=== PATIENT | female | born 1955 | race Two or more races ===

== ENCOUNTER 2025-06-07 00:15 | Emergency (ER) | payer MEDICARE, MEDICAID, SELFPAY ==
[2025-06-07] VITALS (17 sets, daily range): BP systolic 118–150; BP diastolic 76–113; PULSE 61–119; RESP 17–29; TEMP 36.5; O2SAT 93–98; BMI 43.7
--- NOTE | 2025-06-07 00:30 | PD.EDSOB ---
ED SOB =RME/HPI General Chief Complaint: Shortness of Breath/Dyspnea Stated Complaint: DIFF BREATHING Time Seen by Provider: 06/07/25 00:35 Arrival date/time: 06/07/25 00:15 RME / HPI RME / HPI Narrative: See MDM for Dr. Hernadez's HPI documentation. Related Data Home Medications ?Medication ?Instructions ?Recorded ?Confirmed apixaban 2.5 mg tablet (Eliquis) 5 mg PO BID 03/28/21 07/05/22 Held on 07/05/22. Instructions: Resume on 07/06/22. carvedilol 3.125 mg tablet 12.5 mg PO BID 03/28/21 07/05/22 ergocalciferol (vitamin D2) 1,250 1,250 mcg PO DAILY 03/28/21 07/05/22 mcg (50,000 unit) capsule furosemide 40 mg tablet 40 mg PO DAILY 03/28/21 07/05/22 pravastatin 40 mg tablet 40 mg PO DAILY 03/28/21 07/05/22 Previous Rx's ?Medication ?Instructions ?Recorded apixaban 5 mg tablet (Eliquis) 5 mg PO BID #60 tabs 06/07/25 carvedilol 12.5 mg tablet 12.5 mg PO BID #60 tabs 06/07/25 furosemide 40 mg tablet 40 mg PO QAM #30 tabs 06/07/25 Allergies Allergy/AdvReac Type Severity Reaction Status Date / Time enoxaparin (From Lovenox) Allergy Mild HIVES Verified 06/07/25 04:32 Review of Systems Review of Systems Systems Reviewed: All systems reviewed, normal except as documented Past Medical History Past Medical History NEUROLOGIC: Negative Neurological Disorders, Cerebrovascular Accident, Transient Ischemic Attacks (TIA), Dementia, Alzheimer's Disease, Parkinson's Disease, Brain Tumor, Meningitis, Seizures, Epilepsy, Multiple Sclerosis, Cerebral Palsy, Amyotrophic Lateral Sclerosis (ALS/Mi Gehrig's), Guillain-Riverton Syndrome, Spina Bifida, Paralysis, Peripheral Neuropathy, Bain's Palsy, Subdural Hematoma, Migraine, Head Trauma, Spinal Cord Injury or Traumatic Brain Injury CARDIAC: Positive Cardiac Disorders, Atrial Fibrillation (unknown. unclear.), Angina, Congestive Heart Failure and Hypertension; Negative Myocardial Infarction, Cardiac Arrhythmia, Heart Murmur, Coronary Artery Disease, Atherosclerotic Heart Disease, Peripheral Vascular Disease, Hypercholesterolemia, Aneurysm, Congenital Heart Disease, Valvular Heart Disease, Rheumatic Fever, Cardiomyopathy, Edema, Pericarditis, Cellulitis, Deep Vein Thrombosis, Hypotension or Varicose Veins RESPIRATORY: Negative Chronic Obstructive Pulmonary Disease (COPD), Asthma, Bronchitis, Emphysema, Pneumonia, Pulmonary Fibrosis, Cystic Fibrosis, Tuberculosis, Pulmonary Embolism, Pulmonary Edema or Sleep Apnea GASTROINTESTINAL: Negative Gastrointestinal Disorders, Hepatitis, Cirrhosis, Pancreatitis, Celiac Disease, Gall Bladder Disease, Gastrointestinal Bleed, Esophageal Varices, Maria's Esophagus, Colitis, Ulcerative Colitis, Diverticulitis, Diverticulosis, Ulcer, Colorectal Cancer, Irritable Bowel, Crohn's Disease, Obstructive Bowel, Hiatal Hernia, Hemorrhoids, Gastroesophageal Reflux Disease or Obesity GENITOURINARY: Negative Genitourinary Disorders, Renal Disease, Kidney Stones, Polycystic Kidney Disease, Neurogenic Bladder, Inguinal Hernia or Dialysis REPRODUCTIVE: Positive Previous Pregnancies (); Negative Breast Cancer, Endometriosis, Genital Herpes, Gonorrhea, Pelvic Inflammatory Disease, Syphilis or Uterine Prolapse MUSCULOSKELETAL: Negative Musculoskeletal Disorders, Muscular Dystrophy, Myasthenia Gravis, Marfan's Syndrome, Bone Cancer, Arthritis, Rheumatoid Arthritis, Osteoporosis, Degenerative Disk Disease, Gout, Scoliosis, Carpal Tunnel Syndrome, Fibromyalgia, Fractures, Degenerative Joint Disease, Osteomyelitis or Poliovirus ENT: Negative Cataracts, Glaucoma, Blind, Retinal Detachment, Macular Degeneration, Ear Infection, Deafness, Head Trauma or Eye Prosthesis ENDOCRINE: Negative Endocrine Disorders, Diabetes Mellitus Type 1, Diabetes Mellitus Type 2, Hypoglycemia, Jennie's Syndrome, Partridge's Disease, Hyperthyroidism, Hypothyroidism, Parathyroid Disease, Pituitary Disease, Systemic Lupus Erythematosus, Syndrome of Inappropriate Antidiuretic Hormone (SIADH), Adrenal Disease or Graves' Disease HEMATOLOGIC: Negative Blood Disorders, Anemia, Leukemia, Hemophilia, Thalassemia, Sickle Cell Disease or Clotting Problems PSYCHO/SOCIAL: Positive Depression (undiagnosed.); Negative Psychiatric Problems, Schizophrenia, Recreational Drug Use, Bipolar Disorder, Anxiety, Behavior Problems, Self-Mutilation, Attention Deficit Disorder, Attention Deficit Hyperactivity Disorder, Depression, Post Traumatic Stress Disorder or Eating Disorder OTHER HISTORY: Negative Hospitalization, Autoimmune Disease, Down Syndrome, Autism, Developmental Delay, Shingles, Falls, Blood Transfusions, Blood Transfusion Reaction, Anesthesia Reactions, Organ Transplant, Chemotherapy, Radiation Therapy, Hyperbaric Therapy, MRSA, VRSA, Vancomycin-Resistant Enterococci, Human Immunodeficiency Virus (HIV), Chicken Pox, Measles, Mumps, Rubella (Spanish Measles), Pertussis, Clostridium Difficile, Cancer, Breast Cancer, Cervical Cancer, Colorectal Cancer, Lung Cancer or Ovarian Cancer Family History FAMILY HISTORY: Positive Family Cardiac Disorders (mother and father from [place].); Negative Family Psychiatric Problems, Family Respiratory Disorders, Family Gastrointestinal Problems, Family Cancer, Family Surgery or Family Anesthesia Reaction Surgical History SURGICAL: Positive Tubal Ligation; Negative Cardiac Surgery, Open Heart Surgery, Coronary Artery Bypass Graft, Valve Replacement, Vascular Surgery, Coronary Stent, Cardiac Catheterization, Pacemaker, Angiogram, Auto Implanted Cardiovert Defib, Carotid Endarterectomy, Endocrine Surgery, Thyroidectomy, Ear Surgery, Tympanostomy Tube, Eye Surgery, Nose Surgery, Oral Surgery, Tonsillectomy, Adenoidectomy, Cochlear Implant, Corneal Transplant, Throat Surgery, Abdominal Surgery, Tracheostomy, Gastric Bypass Surgery, Gastrostomy, Bowel Surgery, Nephrectomy, Transurethral Resection, Joint Replacement, Amputation, Open Reduction Internal Fixation, Arthroscopy, Neurologic Surgery, Brain Shunt, Mastectomy, Lumpectomy, Hysterectomy, Section or Organ Transplant Social History SMOKING STATUS: Never smoker SUBSTANCE USE: does not use ED Exam Narrative Physical exam: See [facility] for Dr. Hernadez's physical exam documentation. Course Course Course Narrative: CXR is ordered for determining the etiology of shortness of breath. Quality Measures none Orders Category Date Time Status Bedside COVID-19 Antigen Test NOW Care 06/07/25 00:37 Active Bedside Influenza A&B Antigen Test NOW Care 06/07/25 00:[address] Screening NOW Care 06/07/25 00:38 Active EKG (ED ONLY) *Do not use* NOW Care 06/07/25 00:38 Completed Saline [Insert IV] NOW Care 06/07/25 00:37 Active Straight [In and Out Catheter] X1 Care 06/07/25 00:[address] angio chest Stat Exams 06/07/25 00:38 Taken EKG (ED Only) Stat Exams 06/07/25 00:38 Draft XR chest 1V portable Stat Exams 06/07/25 00:38 Taken BNP [B-Type Natriuretic Peptide] Stat Lab 06/07/25 01:12 Completed Bilirubin,Direct Stat Lab 06/07/25 01:12 Completed Blood Culture (Lab) Stat Lab 06/07/25 01:12 Received CBC Stat Lab 06/07/25 01:12 Completed CMP [Comprehensive Metabolic Panel] Stat Lab 06/07/25 01:12 Completed CRP [C-Reactive Protein] Stat Lab 06/07/25 01:12 Completed D-Dimer Stat Lab 06/07/25 01:12 Completed ESR [Sed Rate (ESR)] Stat Lab 06/07/25 01:12 Completed Lactate (Lactic Acid) Stat Lab 06/07/25 01:12 Completed Magnesium Stat Lab 06/07/25 01:12 Completed PT [Prothrombin Time with INR] Stat Lab 06/07/25 01:12 Completed PTT [Partial Thromboplastin Time] Stat Lab 06/07/25 01:12 Completed Procalcitonin Stat Lab 06/07/25 01:12 Completed TSH [Thyroid Stimulating Hormone] Stat Lab 06/07/25 01:12 Completed Troponin I Stat Lab 06/07/25 01:12 Completed UA, C/S IF [Urinalysis, C/S if Indicated] Stat Lab 06/07/25 01:35 Completed VBG [Venous Blood Gas] Stat Lab 06/07/25 01:12 Completed Albuterol/Ipratr Rt Giovana [Duoneb Rt Giovana] Med 06/07/25 00:38 Discontinued 3 ml INH X1 ONE DILTIAZEM in D5W 125 MG Med 06/07/25 00:54 Active 125 mg in 125 ml IV 5 mg/hr Diltiazem Inj [Cardizem Inj] Med 06/07/25 00:53 Discontinued 15 mg IV X1 ONE Enoxaparin [Lovenox] Med 06/07/25 03:51 Discontinued 80 mg SC X1 ONE Furosemide Inj [Lasix Inj] Med 06/07/25 02:17 Discontinued 20 mg IVP X1 ONE MethylPREDNISolone.* [SoluMEDROL Inj] Med 06/07/25 00:38 Discontinued 125 mg IVP X1 ONE Morphine* Inj Med 06/07/25 02:17 Discontinued 1 mg IV X1 ONE Triamcinolone Acet Oint 0.5% [Kenalog Oint 0.5%] Med 06/07/25 04:30 Discontinued See Dose Instructions TOP X1 ONE predniSONE Med 06/07/25 04:31 Discontinued 60 mg PO X1 ONE Vital Signs Vital signs: Vital Signs Temperature 97.7 F 06/07/25 00:34 Pulse Rate 116 H 06/07/25 00:34 Respiratory Rate 17 06/07/25 00:34 Blood Pressure 150/88 H 06/07/25 00:34 Pulse Oximetry (%) 95 06/07/25 00:34 Oxygen Delivery Method Room Air 06/07/25 00:34 Shortness of Breath / Dyspnea MDM Narrative MDM Narrative:: This section includes all my notes and documentations, including HPI, PE, and ED course. Delroy Hernadez MD HPI: 69yo female with a history of HTN and atrial fibrillation here with shortness of breath for the last couple days. No fever, chills, cough, or leg swelling. No other complaints reported. ROS: All negative except as documented in HPI. Physical Exam: General: Alert and oriented. In respiratory distress. Eyes: Conjunctivae and lids clear. ENT: No nasal congestion. Neck: Supple. Heart: Irregularly irregular (111 bpm). Lungs: In moderate respiratory distress. Severely decreased air movement with no severe rhonchi or wheezing or rales. Abdomen: Soft and nontender. Normal bowel sounds. No distension. No rebound or guarding. Back: No CVA tenderness. Legs: No edema. Skin: Warm and dry. Neuro: Alert and oriented X 3. I reviewed all diagnostic test results. My interpretation of the EKG is atrial fibrillation with RVR. My interpretation of the chest x-ray is increased vascular congestion. My review of the CT angio chest report is pleural effusion. Blood tests remarkable for BNP 391. COVID/Influenza negative. At this point, diagnoses include: Atrial fibrillation Pleural effusion Treatment here included: Solumedrol 125 mg IV and DuoNeb Lasix 20 mg IV Cardizem bolus and drip Lovenox SC Significant improvement noted. Recommended more outpatient care. Based on my best medical judgment, made decision no further evaluation or treatment indicated at this time. Patient understands and agrees to the discharge instructions customized and printed, see below. Discharge Instructions from Dr. Hernadez printed for you: 1. After evaluation, you were treated for atrial fibrillation. See attached handout. 2. Take carvedilol and Lasix (furosemide) and Eliquis as prescribed. We need to take these medications to prevent strokes and heart attacks. This is extremely important. 3. Lasix (furosemide) can lower potassium to very dangerous levels. So eat a banana daily. 4. When sitting or sleeping or resting, elevate the head of bed and elevate your feet/ankles above your waist level. This is extremely important to prevent heart failure. 5. See a private doctor on 06/08/2025 for recheck and further care. Ask to review all test results and official radiology reports, to make sure you receive all necessary follow-ups and monitoring. To make sure there is no serious underlying heart condition, ask to help you get more tests for your heart that cannot be done here in the ER. Such as Holter Monitor (cardiac monitoring at home from a day to even a month), heart stress test (on treadmill or with medication), echocardiogram (imaging of your heart structures), heart catherization (checking for blockages in your heart arteries), and a referral to see a Final Assembly Inspector. 6. Seek immediate medical care with worsening or with any concerns. Delroy Hernadez MD Patient data External records reviewed:: [facility] previous records (Per chart review, patient was seen here on 03/28/21 for anxiety.) Clinical information provided by:: patient Social determinants that could affect healthcare access:: none Patient has the following chronic illnesses:: HTN, aFib How is presenting disease/condition affected by chronic disease/condition?: uneffected by Evaluation data The following diagnostics were reviewed and interpreted by me:: lab results, radiology exam(s) and EKG tracing(s) (My interpretation of the EKG is: Atrial fibrillation (111 bpm) with RVR. Delroy Hernadez MD) Lab and/or radiology exams considered but not ordered:: none Interpretation Summary: I reviewed all diagnostic test results. My interpretation of the EKG is atrial fibrillation with RVR. My interpretation of the chest x-ray is increased vascular congestion. My review of the CT angio chest report is pleural effusion. Blood tests remarkable for BNP 391. COVID/Influenza negative. Medications / Prescriptions Medications or Prescriptions considered but not ordered:: none Medication administrations:: Medication Administration History Diltiazem HCl (Diltiazem In D5w 125 Mg) 125 mg in 125 mls @ 5 mls/hr IV .Q24H DEUCE Stop: 07/07/25 00:53 Last Infusion: 06/07/25 04:12 Dose: 0 mg/hr, 0 mls/hr Documented By: Admin: 06/07/25 01:17 Dose: 5 mg/hr, 5 mls/hr Documented By: LEONOR Discontinued Medications Albuterol/Ipratropium (Albuterol/Ipratropium (Duoneb) Rt Giovana 3 Ml Nebu) 3 ml INH X1 ONE Stop: 06/07/25 00:39 Last Admin: 06/07/25 01:24 Dose: 3 ml Documented By: DAWSON Diltiazem HCl (Diltiazem Inj 5 Mg/Ml Vial 5 Ml) 15 mg IV X1 ONE Stop: 06/07/25 00:54 Last Admin: 06/07/25 01:15 Dose: 15 mg Documented By: LEONOR Enoxaparin Sodium (Enoxaparin Sod Inj 100 Mg/Ml Syringe) 80 mg SC X1 ONE Stop: 06/07/25 03:52 Last Admin: 06/07/25 04:20 Dose: 80 mg Documented By: LEONOR Furosemide (Furosemide Inj 10 Mg/Ml 4ml Vial) 20 mg IVP X1 ONE Stop: 06/07/25 02:18 Last Admin: 06/07/25 02:25 Dose: 20 mg Documented By: LEONOR Methylprednisolone Sodium Succinate (Methylprednisolone Sod Succ 62.5 Mg/Ml 2ml Vial) 125 mg IVP X1 ONE Stop: 06/07/25 00:39 Last Admin: 06/07/25 01:14 Dose: 125 mg Documented By: LEONOR Morphine Sulfate (Morphine Sulf Inj 4 Mg/Ml Vial) 1 mg IV X1 ONE Stop: 06/07/25 02:18 Last Admin: 06/07/25 02:25 Dose: Not Given Documented By: LEONOR Non-Admin Reason: Patient Refused Prednisone (Prednisone 20 Mg Tablet) 60 mg PO X1 ONE Stop: 06/07/25 04:32 Last Admin: 06/07/25 04:37 Dose: 60 mg Documented By: LEONOR Triamcinolone Acetonide (Triamcinolone Acet Oint 0.5% 15 Gm Tube) 0 gm TOP X1 ONE Stop: 06/07/25 04:31 Last Admin: 06/07/25 04:39 Dose: Not Given Documented By: LEONOR Non-Admin Reason: Other, see note Treatment here included: Solumedrol 125 mg IV and DuoNeb Lasix 20 mg IV Cardizem bolus and drip Lovenox SC Consultations Consultation(s) initiated? (list below): No Diagnosis Shortness of Breath Differential Diagnosis: acute exacerbation of chronic obstructive airways disease, congestive heart failure, community acquired pneumonia, asthma with exacerbation and pulmonary embolism Most likely diagnosis given after review of the tests above:: Atrial fibrillation with RVR Pleural effusion Admission Indicated Admission indicated?: not indicated Explain why admission is indicated or not indicated:: With significant improvement and no condition needing emergent intervention, there was no indication for admission. Admission Request Was there a request for admission?: No Disposition Plan Disposition Plan: Discharge Discharge Attestation Discharge Attestation: The patient and all family members were given an opportunity to ask questions and understood the discharge instructions. Discharge instructions specifically effects, indications for sooner follow up or return to the emergency department, and the expected course of current diagnosis. Patient condition: Stable Discharge Plan Plan Patient Disposition: HOME (Self Care) Prescriptions/Referrals Prescriptions/Med Rec: New carvedilol 12.5 mg tablet 12.5 mg PO BID Qty: 60 1RF Rx Instructions: must administer with a meal/food furosemide 40 mg tablet 40 mg PO QAM Qty: 30 1RF Eliquis 5 mg tablet 5 mg PO BID Qty: 60 1RF No Action furosemide 40 mg tablet 40 mg PO DAILY Patient Comments: TAKE 1 TABLET BY MOUTH ONCE DAILY FOR 30 DAYS pravastatin 40 mg tablet 40 mg PO DAILY Patient Comments: TAKE 1 TABLET BY MOUTH ONCE DAILY FOR 30 DAYS carvedilol 3.125 mg tablet 12.5 mg PO BID Patient Comments: TAKE 2 TABLETS BY MOUTH TWICE DAILY WITH FOOD ergocalciferol (vitamin D2) 1,250 mcg (50,000 unit) capsule 1,250 mcg PO DAILY Patient Comments: TAKE 1 CAPSULE BY MOUTH ONCE A WEEK Eliquis 2.5 mg tablet 5 mg PO BID Patient Comments: TAKE 2 TABLETS BY MOUTH TWICE DAILY Referrals: No Primary/Family,Physician [Referring Provider] - In 1 week Problem List Clinical Impression: Atrial fibrillation Patient/Caregiver Discharge Instructions Discharge Activity: activity as tolerated Education Materials: ED Atrial Fibrillation Additional Instructions: Discharge Instructions from Dr. Hernadez printed for you: 1. After evaluation, you were treated for atrial fibrillation. See attached handout. 2. Take carvedilol and Lasix (furosemide) and Eliquis as prescribed. We need to take these medications to prevent strokes and heart attacks. This is extremely important. 3. Lasix (furosemide) can lower potassium to very dangerous levels. So eat a banana daily. 4. When sitting or sleeping or resting, elevate the head of bed and elevate your feet/ankles above your waist level. This is extremely important to prevent heart failure. 5. See a private doctor on 06/08/2025 for recheck and further care. Ask to review all test results and official radiology reports, to make sure you receive all necessary follow-ups and monitoring. To make sure there is no serious underlying heart condition, ask to help you get more tests for your heart that cannot be done here in the ER. Such as Holter Monitor (cardiac monitoring at home from a day to even a month), heart stress test (on treadmill or with medication), echocardiogram (imaging of your heart structures), heart catherization (checking for blockages in your heart arteries), and a referral to see a Final Assembly Inspector. 6. Seek immediate medical care with worsening or with any concerns. Instrucciones de mohit del Dr. Hernadez, impresas para usted: 1. Tras la evaluaci?n, recibi? tratamiento para fibrilaci?n auricular. Consulte el folleto adjunto. 2. [place] carvedilol, Lasix (furosemida) y Eliquis seg?n lo prescrito. Necesitamos lucy estos medicamentos para prevenir accidentes cerebrovasculares y ataques card?acos. [place] es extremadamente importante. 3. Lasix (furosemida) puede reducir el potasio a niveles muy peligrosos. Por lo tanto, coma un pl?rene al d?a. 4. Al sentarse, dormir o descansar, eleve la cabecera de la cama y los pies/tobillos por encima de la cintura. [place] es extremadamente importante para prevenir la insuficiencia card?selma. 5. Consulte con un m?dico particular el 08/06/2025 para odalys revisi?n y atenci?n adicional. Solicite la revisi?n de todos los resultados de las pruebas y los informes radiol?gicos oficiales para asegurarse de recibir todos los seguimientos y la monitorizaci?n necesarios. Para asegurarse de que no haya odalys afecci?n card?selma subyacente grave, solicite ayuda para realizar m?s pruebas card?acas que no se pueden realizar en urgencias. Por ejemplo, un monitor Holter (monitorizaci?n card?selma en casa desde un d?a hasta un mes), odalys prueba de esfuerzo card?aco (en cinta caminadora o con medicaci?n), un ecocardiograma (im?genes de las estructuras card?acas), un cateterismo card?aco (para detectar obstrucciones en las arterias card?acas) y odalys derivaci?n a un cardi?logo. 6. Busque atenci?n m?dica inmediata si miramontes estado empeora o tiene alguna inquietud. Print Language: Yi Stand Alone Forms: [employer] Info., Patient Portal Info Letter
--- NOTE | 2025-06-07 00:38 | XR_ITS ---
Examination: AP chest single view Technique one AP portable upright chest single view Date and time: June 07, 2025, 0117 hrs., Comparison September 30, 2021 Indication: Shortness of breath today. Findings: Mild heart failure Mild enlargement cardiac contour prominent vascular congestion and early perihilar edema Consider superimposed bilateral pneumonia Prominent osteopenia Impression: Mild heart failure Consider superimposed bilateral pneumonia, clinical correlation advised
--- NOTE | 2025-06-07 00:38 | XR_ITS ---
Examination: CTA chest with intravenous contrast 2-D reconstructions 3-D reconstructions, vascular Date and time of exam: June 07, 2025, 0246 hrs. Indications: Shortness of breath difficulty breathing chest pain abdominal pain today CTDI: vol (mGy) 11.3 DLP: (mGycm) 397 Technique: Multiple axial sections of the thorax have been obtained. 3 mm slice thickness, from below the hemidiaphragms to above the apices of the lungs. Mediastinal and lung density settings have been obtained. 2-D sagittal and coronal reconstructions. 3-D angiographic renderings, 3-D volume renderings, 3D post processing, vascular maximum intensity projections obtained. Contrast administered is 100 cc Isovue-370 intravenous. Low dose protocols were performed. One or more of the following dose reduction techniques were used; automated exposure control, adjustment of the mA and/or KV according to patient size, use of iterative reconstruction technique. Findings: No thoracic aortic aneurysmal dilatation Pulmonary artery segments are not enlarged Mild to moderate enlargement cardiac contour with septal edema in the lung maria No lobar pneumonia Mild right minimal left pleural fluid Cirrhosis, liver irregular in contour Contracted gallbladder with possible wall thickening and inflammatory change No definite hydronephrosis Impression: Mild heart failure. Negative for pulmonary artery emboli Cirrhosis Recommend hepatobiliary sonography to exclude cholecystitis
--- NOTE | 2025-06-07 00:38 | EKG_ITS ---
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: : 1955 Requested By: Delroy Chandler Order Number: [id number] Reading MD: Delroy Chandler Measurements Intervals [place] Rate: 111 P: AL: QRS: -35 QRSD: 89 T: 46 QT: 324 QTc: 440 Interpretive Statements ATRIAL FIBRILLATION WITH RAPID VENTRICULAR RESPONSE LEFT AXIS DEVIATION [QRS AXIS < -30] LOW QRS VOLTAGE IN PRECORDIAL LEADS [QRS DEFLECTION < 1.0 mV IN CHEST LEADS] POSSIBLE ANTERIOR MYOCARDIAL INFARCTION , PROBABLY OLD [30 ms Q WAVE IN V3/V4, OR R < 0.2 mV IN V4] Compared to ECG 07/03/2022 11:30:01 Left-axis deviation now present Low QRS voltage now present Myocardial infarct finding now present ST (T wave) deviation no longer present /store/S0/[id number].pdf
[2025-06-07] MEDS: MethylPREDNISolone SOD SUCC 62.5 MG/ML 2ML VIAL 125 MG IVP (01:14)
[2025-06-07] MEDS: DILTIAZEM INJ 5 MG/ML VIAL 5 ML 15 MG IV (01:15)
[2025-06-07] MEDS: DILTIAZEM in D5W 125 MG 125 MG/125 ML BAG IV (01:17)
[2025-06-07] MEDS: ALBUTEROL/IPRATROPIUM (Duoneb) RT SOL 3 ML NEBU INH (01:24)
[2025-06-07 01:28] LABS: Lactate (Lactic Acid) 1.2 mMol/L (0.4-2.0)
[2025-06-07 01:32] LABS: Basophils # (Auto) 0.0 Thou/mm3 (0.0-0.2); Basophils % (Auto) 1 % (0-2.5); Eosinophils # (Auto) 0.1 Thou/mm3 (0.0-0.5); Eosinophils % (Auto) 1 % (0-10); Hematocrit 38.3 % (36.0-46.0); Hemoglobin 13.0 g/dL (12.0-16.0); Immature Granulocytes Auto 0.03 Thou/mm3 (0.00-0.00); Lymphocytes # (Auto) 1.7 Thou/mm3 (1.0-4.8); Lymphocytes % (Auto) 21 % (10-50); Mean Corpuscular HGB Conc 33.9 g/dl (31.0-37.0); Mean Corpuscular Hemoglobin 31.8 pg (25.0-35.0); Mean Corpuscular Volume 94 fL (80-100); Monocytes # (Auto) 0.4 Thou/mm3 (0.0-0.8); Monocytes % (Auto) 5 % (0-12); Neutrophils # (Auto) 6.0 Thou/mm3 (1.8-7.7); Neutrophils % (Auto) 72 % (37-80); Nucleated Red Blood Cell # 0.00 Thou/mm3 (0.00-0.00); Nucleated Red Blood Cell % 0 /100 WBC (0); Platelet Count 174 Thou/mm3 (140-440); RDW Standard Deviation 45.1 fL (36.4-46.3); Red Blood Count 4.09 Miln/mm3 (4.00-5.20); White Blood Count 8.2 Thou/mm3 (3.6-11.0)
[2025-06-07 01:42] LABS: Collection Type, Urine Clean Catch
[2025-06-07 01:48] LABS: INR 1.0 (0.9-1.3); Partial Thromboplastin Time 25.0 Seconds (22.0-36.0); Prothrombin Time 10.9 Seconds (9.0-12.2)
[2025-06-07 01:55] LABS: Base Excess, Venous -2 (-3-3); O2 Saturation, Venous 86 % (96-97); PCO2, Venous 37 mmHg (36-56); PO2, Venous 49 mmHg (15-58); pH, Venous 7.40 (7.33-7.66)
[2025-06-07 01:56] LABS: Sed Rate (ESR) 16 mm/hr (0-30)
--- NOTE | 2025-06-07 01:59 | PC.RT ---
abg was attempted at 0138, was unsuccessful
[2025-06-07 02:00] LABS: Alanine Aminotransferase 18 U/L (10-49); Albumin, Serum 4.0 gm/dL (3.4-4.8); Albumin/Globulin Ratio 1.5 (1.2-2.2); Alkaline Phosphatase 77 U/L (46-116); Anion Gap 10 (7-16); Aspartate Amino Transferase 24 U/L (0-34); BUN/Creatinine Ratio 16 Ratio (12-20); Bilirubin,Direct 0.7 mg/dL (0.0-0.3); Bilirubin,Total 2.7 mg/dL (0.3-1.2); Blood Urea Nitrogen 18 mg/dL (9-23); C-Reactive Protein < 0.5 mg/dL (0.0-0.9); Calcium 9.5 mg/dL (8.3-10.6); Calcium (Corrected) 9.5 mg/dL (8.5-10.1); Carbon Dioxide 22.7 mMol/L (20.0-31.0); Chloride 109 mMol/L (98-107); Creatinine (Component) 1.1 mg/dL (0.6-1.3); Globulin 2.7 gm/dL (2.3-3.5); Glucose 145 mg/dL (74-106); Magnesium 1.9 mg/dL (1.6-2.6); Osmolality,Calculated 288 (275-295); Potassium 3.9 mMol/L (3.4-5.1); Procalcitonin 0.08 ng/ml (0.0-0.49); Sodium 142 mMol/L (136-145); Thyroid Stimulating Hormone 3.38 uIU/mL (0.55-4.78); Total Protein 6.7 gm/dL (5.7-8.2); Troponin I < 0.020 ng/mL (0.0-0.045); eGFR 54 See Note
[2025-06-07 02:04] LABS: Bacteria,Urine Rare; Bilirubin,Urine 1+ (Negative); Blood,Urine 2+ (Negative); Calcium Oxalate Crystals,Urine 4+; Clarity,Urine Turbid (Clear/Hazy); Color,Urine Yellow (Lt Yel-Yel); Culture Indicated,Urine Contaminated; Glucose, Urine Negative (Negative); Hyaline Casts,Urine 1 /hpf (0-1); Ketones,Urine Negative (Negative); Leukocyte Esterase,Urine Positive (Negative); Nitrite,Urine Negative (Negative); PH,Urine 6.0 (5.0-7.0); Protein,Urine 3+ (Neg - Trace); RBC,Urine 24 /hpf (0-3); Specific Gravity,Urine 1.030 (1.001-1.035); Squamous Epithelial Cell,Urine 27 /hpf (0-5); Urobilinogen,Urine 6.0 mg/dL (0.0-1.0); WBC,Urine 25 /hpf (0-5)
[2025-06-07 02:13] LABS: B-Type Natriuretic Peptide 391 pg/mL (0-100)
[2025-06-07] MEDS: FUROSEMIDE INJ 10 MG/ML 4ML VIAL 20 MG IVP (02:25)
[2025-06-07 03:23] LABS: D-Dimer 681 ng/mL (<600)
--- NOTE | 2025-06-07 03:53 | PRELIM_ITS ---
CT angiogram of the chest with intravenous contrast (axial sections with sagittal and coronal reformats) June 07, 2025 0246 hours Clinical History: SOB Technique:Helical axial sections with sagittal and coronal reformats of the chest were obtained with intravenous contrast. Iterative reconstruction technique was employed to reduce patient radiation exposure. 3D/MIP reconstructed images were also provided. Comparison: No prior study is available for comparison. Findings: There is no filling defect within the pulmonary artery divisions to suggest pulmonary thromboembolism. The mediastinum demonstrates no evidence of mass or lymphadenopathy. The thoracic aorta is unremarkable. There is no pericardial effusion. There is mild heterogeneous attenuation of the lower lungs. There are bilateral pleural effusions (Right more than left). No evidence of pneumothorax. Mild degenerative changes are identified in the spine. A small hiatal hernia is present. The gallbladder is distended with pericholecystic fat stranding . The liver demonstrates a nodular contour. There is right extrarenal pelvis.The pther visualized upper abdominal viscera are unremarkable. Impression: No CT evidence of pulmonary thromboembolism . Mild heterogeneous attenuation of the lower lungs, suggestive of small airways disease. Bilateral pleural effusions (Right more than left). Findings suggestive of hepatic cirrhosis. Findings consistent with acute cholecystitis. Recommend further evaluation with sonography, if clinically indicated. Other findings as described above. Report Electronically Signed By: Gwen Richards 06/07/2025 3:53:02 AM [EST]
[2025-06-07] MEDS: ENOXAPARIN SOD INJ 100 MG/ML SYRINGE 80 MG SC (04:20)
--- NOTE | 2025-06-07 04:33 | PC.NURSE ---
ALLERGIC REACTION AT SITE OF LOVENOX INJECTION. PT STATES ITS ITCHY. RN ASSESSED SITE. LOCALIZE ITCHING AND MILD REDNESS AND 4 BUMPS/ HIVES. PROVIDER DR. BOWLING NOTIFIED
--- NOTE | 2025-06-07 04:42 | PC.NURSE ---
kenalog ointment was not in pyxsis. [facility] for med was not available throughout hospital.provider notified. provider dr. puckett verbal order to cancel due to out of stock
--- NOTE | 2025-06-07 04:43 | PC.NURSE ---
pt was educated about Benadryl if itching and site worsens. this rn also encouraged pt to return if any new symptoms start. at this moment pt denies any sob and chest pain.
== END 2025-06-07 04:50 | disposition home or self-care (01) ==
PROVIDERS: Emergency Provider Emergency Medicine; PCP Nurse Practitioner Family
DX: I48.91 Unspecified atrial fibrillation (principal); J90 Pleural effusion, not elsewhere classified; I10 Essential (primary) hypertension; Z79.01 Long term (current) use of anticoagulants; Z79.899 Other long term (current) drug therapy
CPT/HCPCS: 36415; 36600; 71045; 71275; 80053; 81001; 82248; 82803; 83605; 83735; 83880; 84145; 84443; 84484; 85025; 85379; 85610; 85652; 85730; 86140; 87040; 87400; 87811; 93005; 94640; 96365; 96366; 96372; 96374; 96375; 99284; A4649; A9270; J1650; J1938; J2919; J3490; J7512; Q9967